=== PATIENT | female | born 1995 | race Caucasian/White ===

== ENCOUNTER 2019-04-21 11:28 | Inpatient (IN) | payer MEDICAID ==
[~2019-04-21] VITALS: Ht 162.6 cm; Wt 50.6 kg
[~2019-04-21 11:28] MED LIST: CEPH500C PO; HYDR-4011 PO; IBUP-1545 PO; SULF1TAB31 PO
[2019-04-21 11:55] VITALS: Ht 162.6 cm; Wt 50.6 kg
[2019-04-21] MEDS ORDERED: KETOROLAC 30 MG INJ IV STA (13:03)
[2019-04-21] MEDS ORDERED: morphine 4 MG/ML VIAL IV STA (13:11)
[2019-04-21] MEDS ORDERED: CEFTRIAXONE 1 GM/50 ML (PMX) 50 ML IVPB ONE (13:30)
[2019-04-21] MEDS ORDERED: SODIUM CHLORIDE 0.9% 1L BAG IV* STA (14:46)
[2019-04-21] MEDS ORDERED: CEFEPIME 2GM/50 ML (PMX) 50 ML IVPB STA (14:46)
[2019-04-21] MEDS ORDERED: ONDANSETRON 4 MG INJ IV PRN (15:00)
[2019-04-21] MEDS ORDERED: ACETAMINOPHEN 325 MG TAB PO PRN ×2 (15:00→15:30)
[2019-04-21] MEDS ORDERED: VANCOMYCIN 1 GM (PMX) 250 ML IVPB ONE (15:00)
[2019-04-21] MEDS ORDERED: HYDROCODONE/APAP (5/325) TAB PO PRN (15:30)
[2019-04-21] MEDS ORDERED: NACL 0.9% 3 ML SYG IV SCH (15:30)
[2019-04-21] MEDS ORDERED: DOCUSATE SODIUM 100 MG CAP PO PRN (15:30)
[2019-04-21] MEDS ORDERED: MAGNESIUM HYDROXIDE 30ML CUP PO PRN (15:30)
[2019-04-21] MEDS ORDERED: VANCOMYCIN IV PER PHARMACY XX SCH (15:30)
[2019-04-21] MEDS: POTASSIUM CHLORIDE 100 ML IVPB SCH ×2 (17:30→21:43)
[2019-04-21] MEDS: DEXTROSE 5%-0.45% NACL 1,000 ML IV SCH (19:22)
[2019-04-21 19:35] VITALS: BP 119/78; PULSE 92; RESP 20
[2019-04-21] MEDS: FAMOTIDINE 20 MG INJ IV SCH (20:23)
[2019-04-21] MEDS: CEFEPIME 1GM/50 ML (PMX) 50 ML IVPB SCH (20:23)
[2019-04-21] MEDS: ONDANSETRON 4 MG INJ IV PRN (21:37)
[2019-04-21] MEDS: KETOROLAC 15 MG INJ IV PRN (21:38)
[2019-04-21] MEDS: VANCOMYCIN 500 MG (PMX) 100 ML IVPB SCH (23:49)
[2019-04-22] MEDS ORDERED: POTASSIUM CHLORIDE (SR) 20 MEQ TAB PO ONE (00:13)
[2019-04-22 02:20] VITALS: BP 103/57; PULSE 84; RESP 20
[2019-04-22] MEDS: DEXTROSE 5%-0.45% NACL 1,000 ML IV SCH ×2 (04:37→08:09)
[2019-04-22] MEDS: KETOROLAC 15 MG INJ IV PRN ×2 (05:34→14:56)
[2019-04-22] MEDS: ONDANSETRON 4 MG INJ IV PRN ×3 (05:34→23:39)
[2019-04-22 08:06] VITALS: BP 107/62; PULSE 89; RESP 18
[2019-04-22] MEDS: FAMOTIDINE 20 MG INJ IV SCH ×2 (08:07→20:39)
[2019-04-22] MEDS: VANCOMYCIN 500 MG (PMX) 100 ML IVPB SCH ×3 (08:08→17:15)
[2019-04-22] MEDS ORDERED: POTASSIUM CHLORIDE (SR) 20 MEQ TAB PO STA (08:23)
[2019-04-22] MEDS ORDERED: MAGNESIUM SULFATE 2 GM/50 ML 50 ML IVPB ONE (08:30)
[2019-04-22] MEDS ORDERED: D5W-0.45 NACL + KCL 20 MEQ 1,000 ML IV SCH (08:30)
[2019-04-22] MEDS: NS + KCL 20 MEQ 1,000 ML IV SCH ×3 (08:30→21:50)
[2019-04-22] MEDS: CEFEPIME 1GM/50 ML (PMX) 50 ML IVPB SCH ×2 (09:16→20:39)
[2019-04-22] MEDS: morphine 2 MG INJ IV PRN ×2 (09:23→22:42)
[2019-04-22 15:10] VITALS: BP 105/58; PULSE 90; RESP 18
[2019-04-22 19:20] VITALS: BP 120/72; PULSE 90; RESP 20
[2019-04-22] MEDS: VANCOMYCIN 750 MG (PMX) 250 ML IVPB SCH (23:31)
[2019-04-23 02:10] VITALS: BP 107/63; PULSE 88; RESP 20
[2019-04-23] MEDS: NS + KCL 20 MEQ 1,000 ML IV SCH (02:57)
[2019-04-23 07:36] VITALS: BP 121/66; PULSE 77; RESP 20
[2019-04-23] MEDS: VANCOMYCIN 750 MG (PMX) 250 ML IVPB SCH ×3 (08:14→23:50)
[2019-04-23] MEDS: ONDANSETRON 4 MG INJ IV PRN ×3 (08:16→17:09)
[2019-04-23] MEDS: FAMOTIDINE 20 MG INJ IV SCH (08:16)
[2019-04-23] MEDS: morphine 2 MG INJ IV PRN (08:16)
[2019-04-23] MEDS: CEFEPIME 1GM/50 ML (PMX) 50 ML IVPB SCH (11:08)
[2019-04-23] MEDS ORDERED: traMADol 50 MG TAB PO PRN (11:30)
[2019-04-23] MEDS ORDERED: HYDROCODONE/APAP (10/325) TAB PO PRN (16:00)
[2019-04-23] MEDS ORDERED: CEFTRIAXONE 1 GM/50 ML (PMX) 50 ML IVPB SCH (16:30)
[2019-04-23 19:35] VITALS: BP 122/83; PULSE 75; RESP 16
[2019-04-23] MEDS: FAMOTIDINE 20 MG TAB PO SCH (20:46)
[2019-04-24 02:10] VITALS: BP 123/77; PULSE 86; RESP 18
[2019-04-24 08:27] VITALS: BP 124/71; PULSE 94; RESP 18
[2019-04-24] MEDS: FAMOTIDINE 20 MG TAB PO SCH ×2 (09:00→21:41)
[2019-04-24] MEDS: VANCOMYCIN 750 MG (PMX) 250 ML IVPB SCH (09:20)
[2019-04-24] MEDS ORDERED: TRIMETHOPRIM/SULFAMETHOX (DS) TAB PO SCH (11:00)
[2019-04-24] MEDS ORDERED: VANCOMYCIN IV PER PHARMACY XX SCH (15:00)
[2019-04-24] MEDS ORDERED: CEFTRIAXONE 1 GM/50 ML (PMX) 50 ML IVPB SCH (15:00)
[2019-04-24] MEDS: CEFTRIAXONE 1 GM/50 ML (PMX) 50 ML IVPB SCH (15:04)
[2019-04-24] MEDS ORDERED: VANCOMYCIN 1 GM (PMX) 250 ML IVPB SCH (15:30)
[2019-04-24] MEDS ORDERED: VANCOMYCIN 1 GM 250 ML IVPB SCH (16:00)
[2019-04-24 20:47] VITALS: BP 121/73; PULSE 97; RESP 18
[2019-04-24] MEDS: VANCOMYCIN 1 GM 250 ML IVPB SCH (23:38)
[2019-04-25] VITALS (17 sets, daily range): BP systolic 101–125; BP diastolic 55–80; PULSE 59–88; RESP 18–47
[2019-04-25] MEDS ORDERED: VANCOMYCIN 750 MG (PMX) 250 ML IVPB SCH
[2019-04-25] MEDS: NAPROXEN 500 MG TAB PO PRN ×2 (02:43→15:05)
[2019-04-25] MEDS: SOD CHLORIDE 0.9% 1,000 ML IV SCH ×2 (06:04→21:40)
[2019-04-25] MEDS: VANCOMYCIN 1 GM 250 ML IVPB SCH ×2 (06:04→15:41)
[2019-04-25] MEDS: FAMOTIDINE 20 MG TAB PO SCH ×2 (08:02→21:00)
[2019-04-25] MEDS ORDERED: MIDAZOLAM 1 MG/ML 2 ML INJ ONE (11:37)
[2019-04-25] MEDS ORDERED: LIDOCAINE 2% (SDV) 5 ML INJ ONE (11:37)
[2019-04-25] MEDS ORDERED: PROPOFOL 20 ML ONE (11:37)
[2019-04-25] MEDS ORDERED: BUPIVACAINE 0.25% (MPF) 30 ML INJ ONE (11:38)
[2019-04-25] MEDS ORDERED: ONDANSETRON 4 MG INJ ONE (11:38)
[2019-04-25] MEDS ORDERED: METOCLOPRAMIDE 10 MG INJ ONE (11:38)
[2019-04-25] MEDS ORDERED: FENTAnyl 50 MCG/ML VIAL ONE (11:39)
[2019-04-25] MEDS ORDERED: BACITRACIN 50000 UNITS INJ ONE (12:33)
[2019-04-25] MEDS ORDERED: POLYMYXIN B 500000 UNIT INJ ONE (12:35)
[2019-04-25] MEDS ORDERED: CEFAZOLIN 1 GM INJ ONE (12:40)
[2019-04-25] MEDS ORDERED: VANCOMYCIN 1 GM INJ ONE (13:06)
[2019-04-25] MEDS ORDERED: HYDROGEN PEROXIDE 118 ML ONE (13:06)
[2019-04-25] MEDS ORDERED: FENTAnyl 50 MCG/ML VIAL IV PRN (13:30)
[2019-04-25] MEDS ORDERED: ONDANSETRON 4 MG INJ IV PRN (13:30)
[2019-04-25] MEDS ORDERED: HYDROmorphONE 1 MG/5 ML IV SYRINGE IV PRN (13:30)
[2019-04-25] MEDS ORDERED: PROCHLORPERAZINE 10 MG INJ IV PRN (13:30)
[2019-04-25] MEDS ORDERED: MEPERIDINE 25 MG INJ IV PRN (13:30)
[2019-04-25] MEDS ORDERED: morphine 4 MG/ML VIAL IV STA (14:03)
[2019-04-25] MEDS ORDERED: OXYCODONE/ACETAMINOPHEN (5/325) TAB PO PRN (14:30)
[2019-04-25] MEDS: CEFTRIAXONE 1 GM/50 ML (PMX) 50 ML IVPB SCH (15:06)
[2019-04-25] MEDS: ONDANSETRON 4 MG INJ IV PRN (19:53)
[2019-04-26 00:11] VITALS: BP 105/59; PULSE 65; RESP 18
[2019-04-26] MEDS: VANCOMYCIN 1 GM 250 ML IVPB SCH ×2 (00:14→06:00)
[2019-04-26 08:20] VITALS: BP 103/56; PULSE 61; RESP 18
[2019-04-26] MEDS: FAMOTIDINE 20 MG TAB PO SCH ×2 (09:00→21:00)
[2019-04-26] MEDS: ENOXAPARIN 40 MG/0.4 ML SYG SC SCH (09:16)
[2019-04-26] MEDS: SOD CHLORIDE 0.9% 1,000 ML IV SCH (14:20)
[2019-04-26 15:02] VITALS: BP 125/72; PULSE 69; RESP 18
[2019-04-26] MEDS: CEFTRIAXONE 1 GM/50 ML (PMX) 50 ML IVPB SCH (16:05)
[2019-04-26] MEDS: VANCOMYCIN 750 MG (PMX) 250 ML IVPB SCH ×2 (17:27→23:40)
[2019-04-26 20:26] VITALS: BP 117/67; PULSE 88; RESP 18
[2019-04-27 02:59] VITALS: BP 102/54; RESP 18
[2019-04-27 08:15] VITALS: BP 116/63; PULSE 78; RESP 18
[2019-04-27] MEDS: VANCOMYCIN 750 MG (PMX) 250 ML IVPB SCH (08:57)
[2019-04-27] MEDS: ENOXAPARIN 40 MG/0.4 ML SYG SC SCH (08:57)
[2019-04-27] MEDS: FAMOTIDINE 20 MG TAB PO SCH (08:59)
== END 2019-04-27 15:46 | disposition home or self-care (01) | DRG 603 ==
LOC: FTE 11:28 → MS1 15:12
PROVIDERS: ADMIT Internal Medicine; ATTEND Internal Medicine
PROC: 0J9P00Z Drainage of Left Lower Leg Subcutaneous Tissue and Fascia with Drainage Device, Open Approach (ICD-10-PCS; principal; 2019-04-25 13:00)
DX: L02.416 Cutaneous abscess of left lower limb (principal); M70.42 Prepatellar bursitis, left knee; L03.116 Cellulitis of left lower limb
CPT/HCPCS: 36415; 73562; 73590; 73721; 80048; 80053; 80069; 80202; 81025; 83605; 83735; 85025; 85651; 86140; 87070; 87075; 87102; 87116; 96365; 96375; 97110; 97116; 97161; 97530; J0690; J0692; J0696; J1170; J1650; J1885; J2250; J2270; J2405; J2765; J3010; J3370; J3475; J3480; J7030; J7042